=== PATIENT | female | born 2000 ===

== ENCOUNTER → 2024-06-03 12:34 | Outpatient (CLI) | payer OTHER, SELFPAY ==
--- NOTE | 2024-06-03 12:38 | DI.RAD.S_ITS ---
PROCEDURE: [place] KNEE INJECTION MR/CT LT COMPARISON: None. INDICATIONS: LEFT KNEE PAIN TECHNIQUE: The indications, alternatives, benefits, risks, and complications of the procedure were explained to the patient. Written informed consent was obtained and placed in the chart. The knee was examined fluoroscopically and a site for needle placement chosen for entry into the joint from a medial approach. The skin was prepped and draped in a sterile fashion, and 1% lidocaine infiltrated from skin down to joint capsule. A spinal needle was inserted into the knee joint, and a small amount of iodinated contrast media injected to confirm intra-articular placement of the needle tip. This was followed by approximately 40 mL dilute solution of a gadolinium containing MR contrast agent. The needle was removed and a dressing was applied. The patient was given postprocedural instructions and sent to the MR suite for MR imaging. FINDINGS: A single fluoroscopic spot image demonstrates intra-articular location of injected iodinated contrast. IMPRESSION: Successful fluoroscopically guided administration of dilute Gadolinium solution into the knee joint for MR arthrogram. Approved by: Mason Finn M.D. on 06/03/2024 at 15:18
[2024-06-03] MEDS: LIDOCAINE 1% 20 ML INJ (13:54)
[2024-06-03] MEDS: SODIUM CHLORIDE 0.9 % 20 ML VIAL IV ×2 (13:55)
--- NOTE | 2024-06-03 15:00 | DI.MRI.S_ITS ---
PROCEDURE: MR KNEE LT W CON INDICATIONS: LEFT KNEE PAIN TECHNIQUE: After the administration of 50 mL of dilute intra-articular Gadolinium contrast, sagittal T1 spin echo with fat saturation and PD fast spin echo with fat saturation, coronal T1 spin echo with and without fat saturation, coronal T2 fast spin echo with fat saturation, axial PD fast spin echo with fat saturation through the knee. COMPARISON: [facility], , [place] KNEE INJECTION MR/CT LT, 06/03/2024, 12:06. FINDINGS: Image quality: Excellent. Anterior cruciate ligament: Intact. Posterior cruciate ligament: Intact. Medial collateral ligament: Intact. Lateral collateral ligament: Intact. Medial meniscus: Intact. Lateral meniscus: Intact. Medial and lateral tendons: The semimembranosus tendon insertions appear intact. Visualized portions of the pes anserinus tendons appear normal. The popliteus tendon is intact. Iliotibial band appears normal. Anterior structures: The quadriceps and patellar tendons appear intact. 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 There is moderate lateral patellar subluxation as position on this exam in the setting of a large amount of intra-articular contrast material. Tibial tubercle-trochlear groove distance is within normal limits. Bones and cartilage: Moderate osseous contusion is seen at the anterior aspect of the lateral tibial plateau. Smaller osseous contusions are seen at the anterior medial and posterior medial aspects of the medial femoral condyle and the lateral aspect of the lateral femoral condyle. Medial femorotibial cartilage: Intact. Lateral femorotibial cartilage: Intact. Patellofemoral cartilage: Intact. Soft tissues: No intra-articular loose body is seen. Trace communicate medial popliteal cyst. The musculature surrounding the knee is normal in bulk. IMPRESSION: 1. Multiple osseous contusions, most notably at the anterior aspect of the lateral tibial plateau with small contusions involving the medial and lateral femoral condyles. No definite fracture line is seen. 2. Cruciate and collateral ligaments are intact. No meniscal tear or focal cartilage defect. 3. Mildly congenitally shallow trochlear groove. Moderate lateral patellar subluxation, which may be related to positioning and the presence of intra-articular contrast material. 4. Trace communicating medial popliteal cyst. Approved by: Mason Finn M.D. on 06/03/2024 at 16:48
== END ==
PROVIDERS: Referring Provider Student in an Organized Health Care Education/Training Program; Visit Provider Student in an Organized Health Care Education/Training Program
DX: S83.012A Lateral subluxation of left patella, initial encounter (principal); S80.02XA Contusion of left knee, initial encounter; S80.912A Unspecified superficial injury of left knee, initial encounter
CPT/HCPCS: 27369; 73580; 73722; A9579; Q9967